=== PATIENT | female | born 1945 | race Caucasian/White ===

== ENCOUNTER 2020-11-18 09:50 | Day surgery (SDC) | payer MEDICARE, OTHER ==
[~2020-11-18] VITALS: Ht 162.6 cm; Wt 78.6 kg
[~2020-11-18 09:50] MED LIST: COMBIGAN EYE DRO5 ML OD; FLUOXETINE HCL20 MG PO; FOLIC ACID1 MG PO; LATANOPROST2.5 ML OPTH; LEVOTHYROXINE50 MCG PO; METFORMIN HCL500 MG PO; METHOTREXATE2.5 MG PO; PLAQUENIL200 MG PO
--- NOTE | 2020-11-18 14:00 | NUR ---
11/18/20 1400 Debbie Renee 5996-PATIENT ARRIVED TO PACU ON 6L MASK RR EVEN NONAROUSABLE. DRESSING BENEATH LEFT BREAST AND UNDER LEFT ARMPIT CDI. IVF INFUSING. SR.
[2020-11-18] MEDS ORDERED: TYLENOL EXTRA500 MG PO (14:25)
[2020-11-18] MEDS ORDERED: HYDROCODON-ACE1 EA11 PO (14:26)
--- NOTE | 2020-11-18 15:45 | NUR ---
1535: CHECKED PATIENT. PATIENT SLEEPING. FAMILY MEMBER AT BEDSIDE. CALL LIGHT WITHIN REACH.
--- NOTE | 2020-11-18 16:26 | NUR ---
REPORT RECEIVED FROM ERUM ROMAN. THIS RN ASSUMING CARE OF PT. THIS RN TO ROOM TO CHECK ON PT. PT RESTING IN BED WITH EYES CLOSED. PT AWAKENS TO VOICE AND MOVEMENT IN THE ROOM. PT DENIES PAIN AND NAUSEA. PT ALSO CONTINUES TO DENY NEED TO VOID. PT WEANED TO ROOM AIR. O2 SATURATIONS MAINTAINING ABOVE 94% ON ROOM AIR. PT REPORTS "I THINK I'LL GET UP IN JUST A LITTLE BIT." PT DENIES ADDITIONAL REQUESTS OR COMPLAINTS AT THIS TIME. CALL LIGHT WITHIN REACH. BED RAILS UP. FAMILY AT BEDSIDE.
--- NOTE | 2020-11-18 17:05 | NUR ---
PT READY FOR DISCHARGE. PT UP WITH STAND BY ASSIST FROM OTTO DANIELSON WHO TAKES PT TO RESTROM. OTTO STATES PT "VOIDED A LARGE AMOUNT." VOID UNMEAUSRED. THIS RN TO ROOM, VITAL SIGNS STABLE. DRESSING SHOWS SCANT PIN POINT SHADOWING, OTHERWISE C/D/I. PT DENIES PAIN AND NAUSEA. PT DRESSES WITH 1 PERSON ASSISTANCE FROM HER DAUGHTER. DISCHARGE INSTRUCTIONS REVIEWED WITH PT AND PTS DAUGHTER. PT AND DAUGHTER VERBALIZE UNDERSTANDING OF INSTRUCTIONS, MEDICATIONS, ACTIVITY RESTRICTIONS, AND FOLLOW UP APPOINTMENT. PT TRANSFERS SELF TO WHEELCHAIR, NO ASSISTANCE NEEDED. PT WHEELED FROM DAY SURGERY TO MEET SISTER AND DAUGHTER, NO ADDITIONAL REQUSTS OR CONERNS.
--- NOTE | 2020-11-22 18:29 | OR ---
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 POSTOPERATIVE DIAGNOSES: 1. 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 2. [place] lymph nodes 2/3 positive for metastatic disease, additional non-sentinel lymph node negative for metastatic disease. PROCEDURES: 1. Injection of Methylene blue for sentinel lymph node identification. 2. Left deep axillary left node biopsy x3 (3 sentinel and additional non-sentinel). 3. Left partial mastectomy with additional deep margin excision including minimal portion of pectoralis fascia and muscle. ANESTHESIA: General, Jeremy Haney CRNA. INDICTIONS: This 75-year-old white woman is a patient of Dr. Shanda Barbosa, radiologist in [place], and formerly Dr. Johnathan Seals, in [place], [place]. She is noted to have a palpable mass in the inferior aspect of the right breast in the breast crease, which is quite obviously palpable. The patient had undergone a mammogram 2 years ago in [place], [place], was noted to have a mass in the inferior aspect, was recommended to have additional images and palpable biopsy, but the patient declined. The patient saw Dr. Langford in recent times and the report was reviewed and again she was recommended to undergo additional mammography and evaluation; a palpable mass was noted too. Mass was located in the central inferior aspect in the breast crease. Ultrasound was performed at the 6 o'clock position of the mass was found to be hypoechoic and lobulated, measuring at least 39 mm in maximum dimension; it had internal blood flow consistent with the neoplasm. A mass had been palpated at the 12 o'clock position and 2 o'clock position, either which showed any abnormality. My clinical exam shows only the dominant mass in the central inferior aspect in the breast crease itself. A biopsy was performed on October 29, 2019, by ultrasound guidance confirming infiltrating ductal carcinoma grade 1/3, without associated in situ component. The patient was offered breast conserving therapy to include lumpectomy, central lymph node biopsy, possible axillary dissection, as well as radiation therapy or mastectomy with central lymph node biopsy and possible Electronically Signed By: UMESH CODY MD 11/22/20 1829 PATIENT NAME: JENNIFER VIEYRA OPERATIVE REPORT DATE OF : 43 REPORT #: [id number] PHYSICIAN: UMESH CODY MD PCP: JOHNATHAN SEALS MD REPORT IS CONFIDENTIAL AND NOT TO BE RELEASED WITHOUT AUTHORIZATION [facility] [address], [place] [address] Signed axillary dissection. She prefers to have lumpectomy if possible. The risks of bleeding and infection, cosmetic deformity and need for additional treatment, and need for axillary dissection were reviewed with her. Current guidelines according to [id number]; if more than 2 sentinel lymph nodes are positive, then axillary dissection was certainly be undertaken; and if 2 or less then it would not be undertaken at this time. She understands this variations of treatment. She also understands a chemotherapy will possibly be recommended if lymph node positive and definitely will be recommended for radiation therapy. Understand all of that and she wishes to proceed. FINDINGS: Good uptake Methylene blue dye to sentinel lymph nodes was noted. Additionally, radionuclide was taken up as well. There were 3 obvious sentinel lymph nodes identified and one additional non-sentinel lymph node also identified and excised. Frozen pathology showed 2/3 sentinel lymph nodes to have metastatic disease and the non-sentinel node was negative as was the third sentinel lymph node. Remaining axilla was negative and had actually no uptake of radionuclide or methylene blue dye. Completion of axillary dissection was not undertaken. As regard to tumor itself that was firm and quite obvious, but located well in relation to the breast in the central inferior aspect in the breast crease. Wide excision was skin and breast parenchyma was undertaken, the lesion did not clinically appeared to penetrate through the pectoralis fascia and to the muscle; however, an additional deep margin was taken given in the location of the tumor and to assure that there is negative margin. DESCRIPTION OF PROCEDURE: The patient was brought to the operating room, given a general anesthetic. Preoperative antibiotic Ancef was given, sequential compression stockings used, and heparin subcutaneously administered and Radiology sweep for radionuclide injection for sentinel lymph node identification. A 2 mL of Methylene blue dye was injected in the central inferior subepithelial area near the areolar margin for additional localization of sentinel lymph nodes. The arm was extended and the left breast, upper axilla and arm, and chest wall prepared with a Betadine bath solution. Using a C-Trak gamma probe device, the axilla was interrogated and did have an area of increased uptake. A small transverse incision in the axilla was made and the dissection was carried through the subcutaneous tissue. Multiple lymphatics were identified by Methylene blue dye and further dissection identified a moderate sized lymph node and not far from it and noted the sentinel lymph node both with uptake of radionuclide and dye. This was dissected free and passed the central lymph nodes #1 and #2. An additional non-sentinel node was noted with a specimen as well. A general dissection more thoroughly undertaken showed additional lymphatic Electronically Signed By: UMESH CODY MD 11/22/20 2316 PATIENT NAME: JENNIFER VIEYRA OPERATIVE REPORT DATE OF : 43 REPORT #: [id number] PHYSICIAN: UMESH CODY MD PCP: JOHNATHAN SEALS MD REPORT IS CONFIDENTIAL AND NOT TO BE RELEASED WITHOUT AUTHORIZATION [facility] [address], [place] [address] Signed channels with Methylene blue dye and dissection was carried along the path of these lymphatic channels identifying another blue sentinel lymph node, and it was identified as sentinel lymph node #3. These were sent for frozen pathology. Additional palpation and interrogation with a gamma probe showed no other candidates considered sentinel lymph nodes. Wound was then packed with some gauze and attention towards the primary tumor. Tumor itself was in the central inferior aspect; it was not fixed to the chest wall. An elliptical incision was made incorporating general segment of skin directly over the mass and located also in the inframammary crease. Dissection to the dermis was undertaken with electrocautery. Flaps were developed inferiorly and superiorly, maintaining the clinically negative margin between the tumor and the breast parenchyma. The deepest portion of resection was undertaken to provide any clinically negative margin. Specimen was oriented with a short stitch superiorly and long stitch laterally. Examination of the operative site showed no particularly suspicious remaining areas. Now at the last given location of the tumor, which was rather deep in relation to the breast parenchyma and close in relation to the pectoralis fascia, resection of the base of the wound was undertaken, which include portions of the pectoralis muscle in minimal amount as well as the margin of the tumor. This was oriented similarly as a superior stitch, that was showed in a lateral stitch that was long. Irrigation was undertaken in sterile water. There was no findings of concern. Hemostasis was assured with electrocautery. The parenchyma of the breast was reapproximated with interrupted 2-0 Vicryl in layers. At this point, the frozen pathology report was returned by Dr. Diggs and this showed sentinel lymph node #1 to have metastatic disease, considered "microscopic" thin lymph node and sentinel lymph node #2 similarly positive. The 3rd sentinel lymph node was considered negative. Mindful, there was additional non-sentinel lymph node submitted, it was additionally evaluated by frozen pathology showing no sign of metastatic disease. Mindful, current guidelines guiding the positivity of the sentinel lymph nodes as more than 2 positive supporting the concept of completion axillary dissection, she was considered reasonable to avoid axillary dissection under this circumstances. Irrigation was undertaken the axilla was sterile water, was no evidence of other palpable abnormalities and re-interrogation with the C-Trak probe, showed no additional candidate that might be submitted as a sentinel node or even any other node particularly. There are no clinical suspicious nodes either. The wound was then closed with interrupted 2-0 Vicryl in deep layer and running subcuticular 3-0 Vicryl for the skin. Steri-Strips were applied to the both sides as were Acticoat dressings. She was ultimately extubated and taken to recovery room in good condition with no complication. Sponge, needle, and instruments counts were reported as correct x3. Electronically Signed By: UMESH CODY MD 11/22/20 8389 PATIENT NAME: JENNIFER VIEYRA OPERATIVE REPORT DATE OF : 43 REPORT #: [id number] PHYSICIAN: UMESH CODY MD PCP: JOHNATHAN SEALS MD REPORT IS CONFIDENTIAL AND NOT TO BE RELEASED WITHOUT AUTHORIZATION [address] [address] Signed MD ALBER Stiles/MAGUE /[id number] cc: MD Diann Lowe, MD Shanda Barbosa, MD Devante Adkins MD, PH.D. Copies: JOHNATHAN SEALS MD,DIANN BARBOSA,DEVANTE BEE MD Electronically Signed By: UMESH CODY MD 11/22/20 1829 PATIENT NAME: JENNIFER VIEYRA OPERATIVE REPORT DATE OF : 43 REPORT #: [id number] PHYSICIAN: UMESH CODY MD PCP: JOHNATHAN SEALS MD REPORT IS CONFIDENTIAL AND NOT TO BE RELEASED WITHOUT AUTHORIZATION
--- NOTE | 2020-11-29 11:41 | PATH ---
[facility] [address] [facility] [place], [place] [address] Signed SPECIMEN(S): A SENTINEL LYMPH NODE 1 2 SPECIMEN(S): B SENTINEL LYMPH NODE 3 SPECIMEN(S): C LEFT INFERIOR CENTRAL BREAST SPECIMEN(S): D LEFT BREAST, ADDITIONAL DEEP MARGIN SPECIMEN SOURCE: A. SENTINEL LYMPH NODE 1 2 B. SENTINEL LYMPH NODE 3 C. LEFT INFERIOR CENTRAL BREAST D. LEFT BREAST, ADDITIONAL DEEP MARGIN CLINICAL HISTORY: Infiltrating ductal carcinoma left breast. Specimen Time to Fixation- 11/18/2020 1:04:00 PM FROZEN SECTION DIAGNOSIS: A. [place] lymph node #1 and 2:[place] lymph nodes: One of 2 lymph nodes positive for metastatic carcinoma. Non-sentinel lymph node: No evidence of malignancy in claims representative section frozen. (Dr. Diggs, 11/18/20, 1:20 PM) Frozen section diagnoses called to Dr. Wallace at 1:46 PM. B. [place] lymph node #3:Positive for metastatic carcinoma. (Dr. Diggs, 11/18/20, 1:20 PM) Frozen section diagnoses called to Dr. Wallace. AI (under the direct supervision of a pathologist) The Gross Description was prepared using a voice recognition system. The report was reviewed for accuracy; however, sound-alike word errors, addition and/or deletions may occur. If there is any question about this report, please contact Client Services. FINAL PATHOLOGIC DIAGNOSIS: A. [place] lymph node, #1 #2, lymphadenectomy: - Two of three lymph nodes, positive for metastatic carcinoma (2/3). - AE/AE3 immunohistochemical stains and multiple serial sections are positive. B. [place] lymph node, #3, lymphadenectomy: - One sentinel lymph node, positive for metastatic carcinoma (1/1). - AE1/AE3 immunohistochemical stain and multiple serial sections were examined. C. Breast, inferior central, left, oriented lumpectomy: - Invasive ductal carcinoma with the following features: - Tumor site: 6 o'clock (based on previous pathology report [id number], PATIENT NAME: JENNIFER VIEYRA PATHOLOGY DATE OF : 43 REPORT #: [id number] PHYSICIAN: PONCHO WHITE PCP: WILLIAM SEALS MD REPORT IS CONFIDENTIAL AND NOT TO BE RELEASED WITHOUT AUTHORIZATION [facility] [address] [place], [place] [address] Signed October 28, 2020). - Tumor size: 28 mm. - Histologic grade (Nayeli histologic score): - Glandular/tubular differentiation score: 2/3. - Nuclear pleomorphism score: 3/3. - Mitotic score: 1/3. - Overall grade: II/III, total score 6/9, intermediate grade. - Tumor focality: Single focus of invasive carcinoma. - Associated in situ component: No DCIS is present. - Tumor extension: - Skin: Skin is present and is uninvolved by carcinoma. - Nipple: No nipple identified. - Skeletal muscle: No skeletal muscle is present. - Margins: - Anterior margin: Fraction of 1 mm (in vicinity of the skin). - Inferior margin: 2 mm. - Posterior margin: 4 mm. - All other margins: Greater than 4 mm. - Summary of lymph nodes (to include specimens A and B): - Total number of lymph nodes examined: 4. - Total number of sentinel lymph nodes examined: 3. - Total lymph nodes positive for metastatic carcinoma: 3. - Total number of lymph nodes with macrometastasis: 3. - Total number of lymph nodes with micrometastatsis: 0. - Total number of lymph nodes with isolated tumor cells: 0. - Size of largest metastatic deposit: 2 mm. - Extra tru extension: Present. - Treatment effect: No known pre-surgical therapy. - Lymphovascular invasion: Not identified. - Microcalcifications: Present. - Additional pathologic findings: None. - Estrogen receptor, progesterone receptor and HER2 previously reported as ER positive, OH positive, Ki-67 proliferating index of 5% and HER2 doug negative. - Surgical pathology stage: pT2, pN1a (sn). D. Breast, left, additional deep margin, excision: - Benign atrophic breast tissue and skeletal muscle bundles, negative for carcinoma. COMMENT: PATIENT NAME: JENNIFER VIEYRA PATHOLOGY DATE OF : 43 REPORT #: [id number] PHYSICIAN: PONCHO PATHOLOGY PCP: WILLIAM SEALS MD REPORT IS CONFIDENTIAL AND NOT TO BE RELEASED WITHOUT AUTHORIZATION [address] [address] Signed Control slides stain appropriately positive. As part of [facility]' Quality Improvement Program, this case was reviewed by another member of our pathology staff. AUBREEK:NAL:cml:C1NR MICROSCOPIC EXAMINATION: Histologic sections of all submitted blocks are examined by light microscopy. These findings, together with the gross examination, support the pathologic diagnosis. GROSS DESCRIPTION: Four specimens are received in four containers, labeled "BA." A. The specimen, labeled "BA, A," and designated on the requisition "sentinel lymph node 1+ 2," is received fresh for frozen section diagnosis and consists of a 4.0 x 2.5 x 2.5 cm piece of adipose tissue with 3 pink-buitrago lymph node candidates from 0.6 up to 1.2 cm in greatest dimension. 2 of the lymph node candidates are stitched and one of the 2 stitched nodes is inked blue. Per the surgeon, the third, unstitched lymph node candidate is a non-sentinel lymph node. The sentinel nodes are bisected and one half of each is submitted for frozen in AFR1. The third, non-sentinel lymph node is bisected and a portion is submitted for frozen section diagnosis in AFR2. The remainder of the lymph node candidates are submitted entirely as follows: A1 remainder of AFS1 A2 remainder of 2 sentinel nodes (contents of cassette "SLN NOT") A3 remainder of AFS2 A4 remainder of third non-sentinel node (contents of cassette "NON SLN NOT") B. The specimen, labeled "BA, B," and designated on the requisition "sentinel lymph node #3," is received fresh for frozen section diagnosis and consists of a 2.0 x 1.5 x 1.5 cm segment of adipose tissue containing the one, 0.5 x 0.5 x 0.4 cm lymph node candidate. The lymph node candidate is bisected and one half of the lymph node candidate is frozen in BFR1. The remainder of the lymph node candidate is submitted entirely as follows: B1 remainder of BFS1 B2 remainder of lymph node candidate C. The specimen, labeled "BA, C" and designated on the requisition "inferior central breast lumpectomy, L, long stitch lateral, short stitch superior," is received in formalin and consists of a 121 g, yellow, lobulated, irregularly-shaped, 10.6 x 7.8 x 3.6 cm lumpectomy specimen that is one 2 with a long suture indicating lateral and a short suture PATIENT NAME: JENNIFER VIEYRA PATHOLOGY DATE OF : 43 REPORT #: [id number] PHYSICIAN: PONCHO PATHOLOGY PCP: WILLIAM SEALS MD REPORT IS CONFIDENTIAL AND NOT TO BE RELEASED WITHOUT AUTHORIZATION [facility] [address] [place], [place] [address] Signed indicating superior. On the anterior surfaces specimen is a buitrago, grossly unremarkable, somewhat oval, 6.5 x 3.7 centimeters skin segment. The specimen is inked as follows: Superior = blue; inferior = green; anterior = yellow; posterior = black; medial = red; lateral = orange. The specimen is sectioned from lateral to medial into 15 slices to reveal an ill-defined, buitrago-white, indurated, 2.8 x 2.7 x 2.2 cm lesion (slice 6-13) without a grossly identifiable biopsy marker. The lesion grossly appears to involve the anterior margin, and abuts the skin. The lesion is 0.2 cm from the inferior margin, 0.4 cm from the deep margin, 1.5 cm from the medial margin, 1.8 cm from the lateral margin, and 3.3 cm from the superior margin. The remaining parenchyma is comprised of yellow fibrofatty and buitrago-white fibroglandular tissue without an additional discrete mass/lesion. Fibroglandular tissue comprises approximately less than 5% of the rete parenchyma. [employer] sections are submitted as follows: C1-C2 lesion to inferior margin (slice 7) C3-C5 lesion to skin and anterior margin (slice 7, 6, and 11 respectively) C6-C7 lesion to deep margin (slice 8 and 10 respectively) C8 nearest lateral margin to lesion (slice 2) C9 nearest medial margin to lesion (slice 14) C10 nearest superior margin to lesion (slice 7) C11 claims representative of remaining parenchyma (slice 4) Cold ischemic time: One minute per requisition form Formalin fixation time: Approximately 23 hours D. The specimen, labeled "BA, D," and designated on the requisition "additional deep margin, L breast biopsy with a portion of pectoralis muscle, short stitch superior, long lateral," is received in formalin and consists of a 23 g, irregularly-shaped, 6.7 x 5.6 x 1.7 cm lumpectomy specimen that is oriented with a long suture indicating lateral and a short suture indicating superior. On the posterior aspect of the specimen is a 2.4 by 2.3 cm area of renee-brown, somewhat fibrous tissue consistent with possible muscle. The specimen is inked as follows: Superior = blue; inferior = green; posterior = black; anterior = yellow; medial = red; lateral = orange. The specimen is sectioned from superior to inferior into 14 slices to reveal yellow fibrofatty and buitrago-white fibroglandular tissue without a discrete mass/lesion. Fibroglandular tissue comprises approximately less than 5% of the parenchyma. Additionally the possible muscle PATIENT NAME: JENNIFER VIEYRA PATHOLOGY DATE OF : 43 REPORT #: [id number] PHYSICIAN: PONCHO WHITE PCP: WILLIAM SEALS MD REPORT IS CONFIDENTIAL AND NOT TO BE RELEASED WITHOUT AUTHORIZATION [address] [address] Signed is up to 0.6 cm deep and without a discrete mass/lesion. The specimen is submitted entirely as follows: D1-D2 perpendicularly sectioned superior end (slice one) D3 slice 3 D4 slice 4 D5-D6 slice 5 bisected D7-D12 slice 6 trisected (D7-D8,D9-D10,D11-D12 are bivalved sections) D13-D15 trisected slice 7 D16-D18 trisected slice 8 D19-D21 trisected slice 9 D22-D25 bisected slice 10 (D22-D23 and D24-D25 are bivalved sections) D26-D27 bisected slice 11 D28-D29 bisected slice 12 D30 bisected slice 13 D31 slice 14 D32 perpendicularly sectioned inferior end (slice 15) Cold ischemic time: One minute per requisition forms Formalin fixation time: Approximately 20 hours ADDITIONAL NOTES: Immunohistochemical and/or in situ hybridization studies were performed on this case with the appropriate positive controls that react as expected. This test was developed and its performance characteristics determined by [facility]. It has not been cleared or approved by the U.S. Food and Drug Administration. The FDA has determined that such clearance or approval is not necessary. This test is used for clinical purposes. It should not be regarded as investigational or for research. [facility] is certified under the Clinical Laboratory Improvement Amendments of 1988 (CLIA) as qualified to perform high complexity clinical laboratory testing. This assay has not been validated for specimens that have been decalcified. PERFORMING LABORATORY: [facility], [address] [address] (CLIA# [id number]). The technical component was performed by [facility], [address] [place] [id number] (Equip Maint Eng: Mckenzie Khan MD; CLIA# [id number]).Professional interpretation was performed by [facility], [facility], [address] PATIENT NAME: JENNIFER VIEYRA PATHOLOGY DATE OF : 43 REPORT #: [id number] PHYSICIAN: [facility] PCP: WILLIAM SEALS MD REPORT IS CONFIDENTIAL AND NOT TO BE RELEASED WITHOUT AUTHORIZATION [address] [place] [address] Signed [place], [place] [id number] (CLIA# [id number]). Diagnostician: Randy Schaeffer MD Pathologist Electronically Signed 11/29/2020 Copies: ~ PATIENT NAME: JENNIFER VIEYRA PATHOLOGY DATE OF : 43 REPORT #: [id number] PHYSICIAN: PONCHO PATHOLOGY PCP: WILLIAM SEALS MD REPORT IS CONFIDENTIAL AND NOT TO BE RELEASED WITHOUT AUTHORIZATION
[2020-12-27] MEDS ORDERED: ATORVASTATIN CA40 MG PO (16:23)
[2020-12-27] MEDS ORDERED: VENLAFAXINE HC150 MG PO (16:25)
[2020-12-27] MEDS ORDERED: LOSARTAN POTASS25 MG PO (16:25)
[2020-12-27] MEDS ORDERED: HYDROCODON-ACE1 EA11 PO (16:25)
== END 2020-11-18 17:05 | disposition home or self-care (01) ==
LOC: DS 09:50 → NUC 11:00 → DS 11:00
PROVIDERS: ATTEND Surgery
PROC: 0HBU0ZZ Excision of Left Breast, Open Approach (ICD-10-PCS; principal; 2020-11-18 12:00)
PROC: 07B60ZX Excision of Left Axillary Lymphatic, Open Approach, Diagnostic (ICD-10-PCS; 2020-11-18 12:00)
DX: C50.112 Malignant neoplasm of central portion of left female breast (principal); C77.3 Secondary and unspecified malignant neoplasm of axilla and upper limb lymph nodes; E11.9 Type 2 diabetes mellitus without complications; J44.9 Chronic obstructive pulmonary disease, unspecified; E03.9 Hypothyroidism, unspecified; M19.90 Unspecified osteoarthritis, unspecified site; Z79.84 Long term (current) use of oral hypoglycemic drugs; Z87.891 Personal history of nicotine dependence; Z90.49 Acquired absence of other specified parts of digestive tract
CPT/HCPCS: 00404; 78195; 80053; 88307; 88341; 88342; A9541; J0690; J1644; J2405; J3010; J7121

== ENCOUNTER 2020-12-28 06:35 | Day surgery (SDC) | payer MEDICARE, OTHER ==
[~2020-12-28] VITALS: Ht 162.6 cm; Wt 79.5 kg
[~2020-12-28 06:35] MED LIST changes: +ATORVASTATIN CA40 MG PO; +HYDROCODON-ACE1 EA11 PO; +LOSARTAN POTASS25 MG PO; +TYLENOL EXTRA500 MG PO; +VENLAFAXINE HC150 MG PO
[2020-12-28] MEDS ORDERED: VAZALORE81 MG PO (07:15)
--- NOTE | 2020-12-28 09:12 | NUR ---
12/28/20 0912 Elle San 0858 PT ARRIVED IN PACU NON RESPONSIVE TO NOXIOUS STIMULI WITH OPA IN PLACE. BLOOD SUGAR 199. 0910 NO CHANGE IN STATUS.
[2020-12-28] MEDS ORDERED: ENDOCET 7.5-321 EACH PO (09:21)
[2020-12-28] MEDS ORDERED: MOTRIN IB200 MG PO (09:21)
[2020-12-28] MEDS ORDERED: TYLENOL EXTRA500 MG PO (09:21)
--- NOTE | 2020-12-28 09:51 | NUR ---
PT ARRIVES BACK TO DS RM 4 FROM PACU DROWSY. PT AROUSES TO VERBAL STIMULATION AND ANSWERS COMMANDS APPROPRIATELY, BUT EASILY DOZES OFF WITH NO STIMULTION. PT STATES, "BOY I AM SLEEPY." PT DAUGHTER AT BEDSIDE. DC CRITERIA EXPLAINED TO PT, CALL LIGHT WITHIN REACH.
--- NOTE | 2020-12-28 11:27 | NUR ---
[id number]: PT RESTING IN BED AWAKE CONVERSING WITH FAMILY AT BEDSIDE. PT TOLERATES JELLO AND WATER WITH NO NAUSEA. PT CONT TO DENY PAIN IN LEFT AXILLA. PROVIDED COFFEE PER REQUEST. PT ASKS WHEN SHE CAN DC HOME AND ENCOURAGED TO VOID PRIOR TO DC. CALL LIGHT WITHIN REACH, PT ENCOURAGED TO USE WITH URGE TO VOID.
[2020-12-28] MEDS ORDERED: ACETAMINOPHEN500 MG PO (11:32)
[2020-12-28] MEDS ORDERED: IBUPROFEN600 MG PO (11:32)
[2020-12-28] MEDS ORDERED: OXYCODON-ACETA1 EAC2 PO (11:32)
--- NOTE | 2020-12-28 14:02 | NUR ---
YN2922: PT USES CALL LIGHT TO NOTIFY THIS RN OF URGE TO VOID. YOCASTA DRAIN SAFETY PINNED TO GOWN, PT SITS AT SIDE OF BED DENIES ANY DIZZINESS OR NAUSEA WITH POSITION CHANGE. PT AMBULATES WITH STEADY GAIT TO BATHROOM, ABLE TO VOID APPROX 100 MLS YELLOW URINE WITH NO PROBLEMS. PT BACK TO DS RM 4 TO GET CHANGED, DAUGHTER IN ROOM AT BEDSIDE TO ASSIST. 1220: DC INSTRUCTIONS GIVEN VERBALLY AND WRITTEN. PT AND PT DAUGHTER EDUCATED ABOUT YOCASTA DRAIN AND GIVEN DEMONSTRATION OF HOW TO DRAIN AND PROPERLY CARE FOR WITH EDUCATION AND FLOWSHEET. PAIN MEDICATION PRESCRIPTION GIVEN TO PT, ENCOURAGED TO TAKE TO PHARMACY TO FILL. PT DC FROM DS RM 4 VIA WC TO FAMILY WAITING IN PERSONAL VEHICLE AT MAIN ENTRANCE OF HOSPITAL TO HOME.
--- NOTE | 2020-12-29 13:17 | OR ---
[facility] [address] [facility] [place], [place] [address] Signed DATE OF OPERATION: 12/28/2020 SURGEON: Umesh Cody MD PREOPERATIVE DIAGNOSES: 1. Left infiltrating ductal breast carcinoma, status post partial mastectomy with sentinel lymph node biopsy x3. 2. Metastatic disease to the sentinel lymph nodes x3. POSTOPERATIVE DIAGNOSES: 1. Left infiltrating ductal breast carcinoma, status post partial mastectomy with sentinel lymph node biopsy x3. 2. Metastatic disease to the sentinel lymph nodes x3. PROCEDURE: Left axillary dissection. ANESTHESIA: General endotracheal; Rodrigo Rahman CRNA. INDICATIONS: This 75-year-old white woman is a patient of Dr. Roderick Langford and underwent left partial mastectomy with sentinel lymph node biopsy x3 on November 18, 2020. At operation, frozen pathology showed the first two sentinel lymph nodes to be positive for metastatic disease, the 3rd one considered negative. Upon final review, however, the sentinel lymph node #3 was also positive. On the basis of current guidelines, completion of axillary dissection is recommended. As regards to the primary tumor, it was 28 mm in size and considered grade 2/3. There was no DCIS component. Excision margins were negative. She is admitted at this time to undergo completion of left axillary dissection. She understands the risks of bleeding, infection, nerve injury, and other unforeseen complications. FINDINGS: Scar tissue from prior dissection was noted. Dissection was undertaken with axillary tissue excised inferior to the left subclavian rather the left axillary vein lateral to the long thoracic nerve and superficial to the thoracodorsal neurovascular bundle. Generous fatty tissue presumably with lymph nodes was noted. There was no sign of obvious positive lymph nodes, though final pathology is pending of course. Good function of the nerves in question was demonstrated. Electronically Signed By: UMESH CODY MD 12/29/20 1317 PATIENT NAME: JENNIFER VIEYRA OPERATIVE REPORT DATE OF : 43 REPORT #: [id number] PHYSICIAN: UMESH CODY MD PCP: WILLIAM SEALS MD REPORT IS CONFIDENTIAL AND NOT TO BE RELEASED WITHOUT AUTHORIZATION [facility] [address] [facility] [place] [address] Signed DESCRIPTION OF PROCEDURE: The patient was brought to the operating room, given a general endotracheal anesthetic. Preoperative antibiotic Ancef was given. Sequential compression device stockings were used and heparin subcutaneously administered. After satisfactory general endotracheal anesthesia, the left breast and axilla were prepared with a chlorhexidine solution and draped sterilely. The previous small transverse incision in the axilla was incised medially and laterally and dissection carried through the subcutaneous tissue with blunt and electrocautery dissection. Using sharp dissection, the axillary fat pad was dissected free identifying ultimately the axillary vein. Dissection inferior to this and medial allowed for identification ultimately, the long thoracic and thoracodorsal neurovascular bundles and the axillary fat and attendant lymph nodes were incorporated in the resected specimen. Clips were used for hemostasis throughout. The long thoracic and thoracodorsal neurovascular bundles were intact and unharmed. The specimen was passed for pathology. Irrigation was undertaken. The axilla was sterile water for its tumor and lytic effect. Additional clips and cautery used in areas suspect for possible future bleeding. Through a separate stab incision, a 7 mm flat Waqar drain was placed and secured to the skin with a nylon suture. The deep axillary soft tissue was reapproximated with interrupted 2-0 Vicryl and skin closed with a running subcuticular 3-0 Vicryl, Steri-Strips were applied as was an Acticoat silver sponge dressing. The patient tolerated procedure well. BLOOD LOSS: Less than 20 mL in aggregate. Umesh Cody MD /KISHANL /[id number] cc: MD Helio Hidalgo MD, PH.D. Dom Burkett MD Electronically Signed By: UMESH CODY MD 12/29/20 1317 PATIENT NAME: JENNIFER VIEYRA OPERATIVE REPORT DATE OF : 43 REPORT #: [id number] PHYSICIAN: UMESH CODY MD PCP: WILLIAM SEALS MD REPORT IS CONFIDENTIAL AND NOT TO BE RELEASED WITHOUT AUTHORIZATION [address] [address] Signed Copies: RODERICK LANGFORD MD, JUNO QUACKENBUSH, ROBERT C MD ~ Electronically Signed By: UMESH CODY MD 12/29/20 1317 PATIENT NAME: JARRELLJENNIFERKITTY MCCOY OPERATIVE REPORT DATE OF : 43 REPORT #: [id number] PHYSICIAN: UMESH CODY MD PCP: WILLIAM SEALS MD REPORT IS CONFIDENTIAL AND NOT TO BE RELEASED WITHOUT AUTHORIZATION
--- NOTE | 2020-12-30 16:58 | PATH ---
[facility] [address] [place], [place] [address] Signed SPECIMEN(S): A LEFT AXILLARY CONTENTS SPECIMEN SOURCE: A. LEFT AXILLARY CONTENTS CLINICAL HISTORY: Infiltrating ductal carcinoma of left breast FINAL PATHOLOGIC DIAGNOSIS: Left axillary contents, dissection: - No evidence of malignancy in ten lymph nodes (0/10). - Fibroadipose tissue with fat necrosis. NAL:cml:C2NR MICROSCOPIC EXAMINATION: Histologic sections of all submitted blocks are examined by light microscopy. These findings, together with the gross examination, support the pathologic diagnosis. GROSS DESCRIPTION: The specimen, labeled "BA," and designated on the requisition "left axillary contents," is received in formalin and consists of one piece of, unoriented, ragged, yellow, fibrofatty, 11.7 x 0.2 x 3.4 cm tissue containing 11 pink-buitrago to buitrago-white somewhat chalky, lymph node candidates from 0.3 up to 2.6 cm in greatest dimension. The lymph node candidate is submitted entirely as follows: A1 5 lymph node candidates in toto A2 2 lymph node candidates in toto A3 one bisected lymph node candidate A4 one bisected lymph node candidate A5-A8 one cross-sectioned lymph node candidate A9-A12 one cross-sectioned lymph node candidate AI (under the direct supervision of a pathologist) The Gross Description was prepared using a voice recognition system. The report was reviewed for accuracy; however, sound-alike word errors, addition and/or deletions may occur. If there is any question about this report, please contact Client Services. PERFORMING LABORATORY: The technical component was performed by [facility], [address] [place] [id number] (Associate Director Data & Analytics: Mckenzie Khan MD; CLIA# [id number]). PATIENT NAME: JENNIFER VIEYRA PATHOLOGY DATE OF : 43 REPORT #: [id number] PHYSICIAN: [facility] PCP: WILLIAM SEALS MD REPORT IS CONFIDENTIAL AND NOT TO BE RELEASED WITHOUT AUTHORIZATION [facility] [address] [place], [place] [address] Signed [facility] [address] [address] (CLIA# [id number]). Diagnostician: Pratibha Diggs MD Pathologist Electronically Signed 12/30/2020 Copies: ~ PATIENT NAME: JENNIFER VIEYRA PATHOLOGY DATE OF : 43 REPORT #: [id number] PHYSICIAN: [facility] PCP: WILLIAM SEALS MD REPORT IS CONFIDENTIAL AND NOT TO BE RELEASED WITHOUT AUTHORIZATION
== END 2020-12-28 12:30 | disposition home or self-care (01) ==
LOC: DS 06:35
PROVIDERS: ATTEND Surgery
PROC: 07B60ZX Excision of Left Axillary Lymphatic, Open Approach, Diagnostic (ICD-10-PCS; principal; 2020-12-28 06:45)
DX: C50.912 Malignant neoplasm of unspecified site of left female breast (principal); C77.3 Secondary and unspecified malignant neoplasm of axilla and upper limb lymph nodes; N64.1 Fat necrosis of breast; E11.9 Type 2 diabetes mellitus without complications; J45.909 Unspecified asthma, uncomplicated; Z90.49 Acquired absence of other specified parts of digestive tract; Z79.84 Long term (current) use of oral hypoglycemic drugs; Z86.73 Personal history of transient ischemic attack (TIA), and cerebral infarction without residual deficits
CPT/HCPCS: 00404; 88307; J0690; J1100; J1644; J1885; J2001; J2250; J2405; J2704; J3010; J7121; Q9968

== ENCOUNTER 2022-04-18 17:02 | Emergency (ER) | payer MEDICARE, OTHER ==
[~2022-04-18] VITALS: Ht 165.1 cm; Wt 78.0 kg
[~2022-04-18 17:02] MED LIST changes: +ACETAMINOPHEN500 MG PO; +CEPHALEXIN500 MG PO; +ENDOCET 7.5-321 EACH PO; +IBUPROFEN600 MG PO; +MOTRIN IB200 MG PO; +OXYCODON-ACETA1 EAC2 PO; +VAZALORE81 MG PO
[2022-04-18] MEDS ORDERED: TAMIFLU75 MG PO (19:52)
[2022-04-18] MEDS ORDERED: CEPHALEXIN500 M1 PO (19:52)
--- NOTE | 2022-04-18 22:42 | EKG ---
[facility] [address] [place] [address] Signed Sinus tachycardia with premature ventricular complexes or fusion complexes Otherwise normal ECG When compared with ECG of 15-NOV-2020 09:29, fusion complexes are now present premature ventricular complexes are now present Confirmed by KOBY THRASHER MD ([id number]) on 04/18/2022 10:42:49 PM Electronically Signed By: KOBY THRASHER MD 04/18/22 224 PATIENT NAME: JENNIFER VIEYRA Electrocardiogram DATE OF : 43 PHYSICIAN: KOBY THRASHER MD REPORT #: [id number] REPORT IS CONFIDENTIAL AND NOT TO BE RELEASED WITHOUT AUTHORIZATION
== END 2022-04-18 21:14 | disposition home or self-care (01) ==
LOC: ED 17:02
DX: J10.1 Influenza due to other identified influenza virus with other respiratory manifestations (principal); N39.0 Urinary tract infection, site not specified; E11.9 Type 2 diabetes mellitus without complications; E78.5 Hyperlipidemia, unspecified; Z20.822 Contact with and (suspected) exposure to COVID-19; Z79.899 Other long term (current) drug therapy; Z79.84 Long term (current) use of oral hypoglycemic drugs
CPT/HCPCS: 36415; 70450; 71045; 80053; 81001; 85025; 87502; 93005; 93010; 96361; 96374; 96375; 99285-25; C9803; G0480; J0696; J2405; J7040; U0003